=== PATIENT | male | born 1940 | race Two or more races ===

== ENCOUNTER 2021-08-10 10:57 | Emergency (ER) | payer OTHER ==
[~2021-08-10] VITALS: Ht 160 cm; Wt 54.4 kg
[2021-08-10] MEDS ORDERED: PRESERVISION A1 EAC1 PO (11:27)
[2021-08-10] MEDS ORDERED: FLONASE16 GM NS (11:27)
[2021-08-10] MEDS ORDERED: BUPROPION XL150 MG PO (11:27)
[2021-08-10] MEDS ORDERED: CARBIDOPA-LEVO1 EA10 NGT (11:27)
[2021-08-10] MEDS ORDERED: ATORVASTATIN CA40 MG PO (11:28)
[2021-08-10] MEDS ORDERED: CETIRIZINE HCL10 MG PO (11:28)
[2021-08-10] MEDS ORDERED: TIMOLOL MALEATE5 M4 OP (11:29)
[2021-08-10] MEDS ORDERED: CLOPIDOGREL BIS75 MG PO (11:29)
[2021-08-10] MEDS ORDERED: LUMIGAN2.5 M1 OP (11:29)
== END 2021-08-10 16:16 | disposition home or self-care (01) ==
LOC: ER 10:57
DX: S00.83XA Contusion of other part of head, initial encounter (principal); S70.02XA Contusion of left hip, initial encounter; S70.01XA Contusion of right hip, initial encounter; S80.12XA Contusion of left lower leg, initial encounter; S40.011A Contusion of right shoulder, initial encounter; W18.09XA Striking against other object with subsequent fall, initial encounter; Y93.89 Activity, other specified; Y92.018 Other place in single-family (private) house as the place of occurrence of the external cause; Y99.8 Other external cause status

== ENCOUNTER 2024-09-19 17:16 | Emergency (ER) | payer OTHER ==
[~2024-09-19] VITALS: Ht 165.1 cm; Wt 65.8 kg
[~2024-09-19 17:16] MED LIST: ATORVASTATIN CA40 MG PO; BUPROPION XL150 MG PO; CARBIDOPA-LEVO1 EA10 NGT; CETIRIZINE HCL10 MG PO; CLOPIDOGREL BIS75 MG PO; FLONASE16 GM NS; LUMIGAN2.5 M1 OP; PRESERVISION A1 EAC1 PO; TIMOLOL MALEATE5 M4 OP
[2024-09-19] MEDS ORDERED: TETANUS & DIPHTHERIA TOX,ADULT 0.5 ML VIAL IM ONE (18:30)
[2024-09-19] MEDS ORDERED: LIDOCAINE HCL 1% 10ML VIAL IJ ONE (18:30)
[2024-09-19 19:40] LABS: HEMATOCRIT 34.3 % (39.0-48.0); HEMOGLOBIN 11.6 g/dL (13-16.00); MEAN CELL VOLUME 96.5 fL (80.0-100.00); MEAN CORPUSCULAR HEMOGLOBIN 32.7 pg (27.00-32.0); MEAN CORPUSCULAR HGB CONC 33.9 g/dl (32.0-36.0); PLATELET COUNT 203 K/uL (150-450); RED BLOOD COUNT 3.55 M/uL (4.00-6.00); RED CELL DISTRIBUTION WIDTH 13.1 % (11.5-14.5)
[2024-09-19 20:07] LABS: ALBUMIN 3.9 gm/dL (3.4-5.0); BILIRUBIN TOTAL 0.61 mg/dL (0.3-1.2); CALCIUM 9.7 mg/dL (8.5-10.1); CREATININE SERUM 1.4 mg/dL (0.70-1.30); GFR 48.05; POTASSIUM 4.45 mEq/L (3.5-5.1); TOTAL PROTEIN 7.9 gm/dL (6.4-8.2)
== END 2024-09-19 22:52 ==
LOC: ER 17:16
PROVIDERS: Nurse Practitioner Family
DX: S01.81XA Laceration without foreign body of other part of head, initial encounter (principal); W19.XXXA Unspecified fall, initial encounter; Y93.89 Activity, other specified; Y92.098 Other place in other non-institutional residence as the place of occurrence of the external cause; Y99.8 Other external cause status; I10 Essential (primary) hypertension
CPT/HCPCS: 12011; 36415; 70450; 72125; 72170; 90471; 90714; 99284; J1670